=== PATIENT | female | born 1970 | race African-American/Black ===

== ENCOUNTER 2017-06-02 08:41 | Emergency (ER) | payer OTHER ==
[2017-06-02] MEDS ORDERED: HYDROCODONE/ACETAMINOPHEN 5-325 MG TABLET PO ONE (09:26)
--- NOTE | 2017-06-02 09:38 | RADIOLOGY REPORT (SQ) ---
EXAM DESCRIPTION: CT HEAD WITHOUT COMPLETED DATE/TIME: 06/02/2017 9:26 am REASON FOR STUDY: fall head neck pain COMPARISON: 08/06/2015. TECHNIQUE: Axial images acquired through the brain without intravenous contrast. Images reviewed wi th bone, brain and subdural windows. Images stored on PACS. All CT scanners at this facility use dose modulation, iterative reconstruction, and/or weight based d osing when appropriate to reduce radiation dose to as low as reasonably achievable (ALARA). [facility]: Dose Right [facility]: CareDose [facility]: Dose Right [facility]: Teradose 4D [facility]: [employer] RADIATION DOSE: CT Rad equipment meets quality standard of care and radiation dose reduction techniq ues were employed. CTDIvol: 64.6 mGy. DLP: 1163 mGy-cm. mGy. LIMITATIONS: None. FINDINGS: VENTRICLES: Normal size and contour. CEREBRUM: No masses. No hemorrhage. No midline shift. No evidence for acute infarction. Normal gra y/white matter differentiation. No areas of low density in the white matter. CEREBELLUM: No masses. No hemorrhage. No alteration of density. No evidence for acute infarction. EXTRAAXIAL SPACES: No fluid collections. No masses. ORBITS AND GLOBE: No intra- or extraconal masses. Normal contour of globe without masses. CALVARIUM: No fracture. PARANASAL SINUSES: Retention cyst floor of left maxillary sinus. . SOFT TISSUES: No mass or hematoma. OTHER: No other significant finding. IMPRESSION: NORMAL BRAIN CT WITHOUT CONTRAST. EVIDENCE OF ACUTE STROKE: NO. COMMENT: Quality ID # [id number]: Final reports with documentation of one or more dose reduction techniques (e.g., Automated exposure control, adjustment of the mA and/or kV according to patient size, use of iterative reconstruction technique) TECHNICAL DOCUMENTATION: JOB ID: [id number] 2010 [employer]- All Rights Reserved
--- NOTE | 2017-06-02 09:42 | RADIOLOGY REPORT (SQ) ---
EXAM DESCRIPTION: SHOULDER RIGHT 2 OR MORE VIEWS COMPLETED DATE/TIME: 06/02/2017 9:33 am REASON FOR STUDY: fall COMPARISON: None. NUMBER OF VIEWS: Three views. TECHNIQUE: Internal rotation, external rotation, and Y view images acquired of the right shoulder. LIMITATIONS: None. FINDINGS: MINERALIZATION: Normal. BONES: Impacted comminuted fracture proximal right humerus with avulsion of greater tuberosity. Prom inent osteophyte inferior acromion. JOINTS: No dislocation. VISUALIZED LUNGS AND RIBS: No pneumothorax. No rib fracture. SOFT TISSUES: No radiopaque foreign body. OTHER: No other significant finding. IMPRESSION: Impacted comminuted fracture proximal right humerus. TECHNICAL DOCUMENTATION: JOB ID: [id number] 2010 [employer]- All Rights Reserved
--- NOTE | 2017-06-02 09:45 | RADIOLOGY REPORT (SQ) ---
EXAM DESCRIPTION: CT CERVICAL SPINE WITHOUT COMPLETED DATE/TIME: 06/02/2017 9:26 am REASON FOR STUDY: fall head neck pain COMPARISON: 08/06/2015 TECHNIQUE: Axial images acquired through the cervical spine without intravenous contrast. Images re viewed with lung, soft tissue and bone windows. Reconstructed coronal and sagittal MPR images review ed. Images stored on PACS. All CT scanners at this facility use dose modulation, iterative reconstruction, and/or weight based d osing when appropriate to reduce radiation dose to as low as reasonably achievable (ALARA). [facility]: Dose Right [facility]: CareDose [facility]: Dose Right [facility]: Teradose 4D [facility]: [employer] RADIATION DOSE: CT Rad equipment meets quality standard of care and radiation dose reduction techniq ues were employed. CTDIvol: 15.8 mGy. DLP: 291 mGy-cm. mGy. LIMITATIONS: None. FINDINGS: ALIGNMENT: Anatomic. MINERALIZATION: Normal. VERTEBRAL BODIES: No fractures or dislocation. DISCS: Moderate disc space loss C4-5 and C5-6 with mild disc space loss at C3-4 and C6-7. Small to m oderate-sized osteophytes. Calcification of posterior longitudinal ligament. Spinal stenosis extend ing from the top of C4 through this C6-7 disc space, primarily mild with moderate narrowing at C4-5. Mild neural foraminal narrowing at C4-5, C5-6 and C6-7. FACETS, LATERAL MASSES, POSTERIOR ELEMENTS: No fractures. No dislocation. No acute findings. HARDWARE: None in the spine. VISUALIZED RIBS: No fractures. LUNG APICES AND SOFT TISSUES: No significant or acute findings. OTHER: No other significant finding. IMPRESSION: 1. No evidence of acute injury. 2. Degenerative disc disease and calcification of the posterior longitudinal ligament with associate d mild to moderate spinal stenosis and mild neural foraminal narrowing. TECHNICAL DOCUMENTATION: JOB ID: [id number] Quality ID # [id number]: Final reports with documentation of one or more dose reduction techniques (e.g., Au tomated exposure control, adjustment of the mA and/or kV according to patient size, use of iterative reconstruction technique) 2010 [employer]- All Rights Reserved
--- NOTE | 2017-06-02 10:29 | ER Document Report ---
ED General - General Chief Complaint: Fall Injury Stated Complaint: FALL ARM PAIN Time Seen by Provider: 06/02/17 09:05 Mode of Arrival: Ambulatory Information source: Patient Notes: 46 yr old female presents after a mechanical trip and fall striking her head and her right shoulder. Patient notes this occurred yesterday notes that she has had difficulty moving her right arm secondary to the pain in the shoulder. Patient denies any fevers or chills denies any neck pain admits to LOC TRAVEL OUTSIDE OF THE [place] IN LAST 30 DAYS: No - HPI Onset: Yesterday Onset/Duration: Sudden Quality of pain: Achy Severity: Mild Pain Level: 3 Associated symptoms: Body/muscle aches, Other Exacerbated by: Movement Relieved by: Denies Similar symptoms previously: No Recently seen / treated by doctor: No - Related Data Allergies/Adverse Reactions: Penicillins Allergy (Verified 10/21/13 16:45) YEAST INFECTION, HIVES Past Medical History - Social History Smoking Status: Never Smoker Cigarette use (# per day): No Chew tobacco use (# tins/day): No Smoking Education Provided: No Family History: Reviewed & Not Pertinent - Past Medical History Cardiac Medical History: Denies: Hx Heart Attack Pulmonary Medical History: Denies: Hx Asthma Neurological Medical History: Reports: Hx Migraine. Denies: Hx Cerebrovascular Accident, Hx Seizures GI Medical History: Denies: Hx Hepatitis, Hx Hiatal Hernia, Hx Ulcer Psychiatric Medical History: Reports: Hx Anxiety, Hx Depression Infectious Medical History: Denies: Hx Hepatitis Past Surgical History: Reports: Hx Gastric Bypass Surgery, Hx Hysterectomy. Denies: Hx Mastectomy, Hx Open Heart Surgery, Hx Pacemaker - Immunizations Immunizations up to date: No Hx Diphtheria, Pertussis, Tetanus Vaccination: Yes Review of Systems - Review of Systems Notes: REVIEW OF SYSTEMS: CONSTITUTIONAL : Denies fever, chills, or sweats. Denies recent illness. EENT: Denies eye, ear, throat, or mouth pain or symptoms. Denies nasal or sinus congestion or discharge. Denies throat, tongue, or mouth swelling or difficulty swallowing. CARDIOVASCULAR: Denies chest pain. Denies palpitations or racing or irregular heart beat. Denies ankle edema. RESPIRATORY: Denies cough, cold, or chest congestion. Denies shortness of breath, difficulty breathing, or wheezing. GASTROINTESTINAL: Denies abdominal pain or distention. Denies nausea, vomiting , or diarrhea. Denies blood in vomitus, stools, or per rectum. Denies black, tarry stools. Denies constipation. GENITOURINARY: Denies difficulty urinating, painful urination, burning, frequency, blood in urine, or discharge. FEMALE GENITOURINARY: Denies vaginal bleeding, heavy or abnormal periods, irregular periods. Denies vaginal discharge or odor. MUSCULOSKELETAL: Admits to shoulder pain SKIN: Denies rash, lesions or sores. HEMATOLOGIC : Denies easy bruising or bleeding. LYMPHATIC: Denies swollen, enlarged glands. NEUROLOGICAL: Denies confusion or altered mental status. Denies passing out or loss of consciousness. Denies dizziness or lightheadedness. Denies headache. Denies weakness or paralysis or loss of use of either side. Denies problems with gait or speech. Denies sensory loss, numbness, or tingling. Denies seizures. PSYCHIATRIC: Denies anxiety or stress. Denies depression, suicidal ideation, or homicidal ideation. ALL OTHER SYSTEMS REVIEWED AND NEGATIVE. PHYSICAL EXAMINATION: GENERAL: Well-appearing, well-nourished and in no acute distress. HEAD: Atraumatic, normocephalic. EYES: Pupils equal round extraocular movements intact, conjunctiva are normal. ENT: Nares patent NECK: Normal range of motion LUNGS: No respiratory distress Musculoskeletal: Patient holding arm across abdomen tender in right humeral head Full range of motion of digits no neuro deficits NEUROLOGICAL: Normal speech, normal gait. PSYCH: Normal mood, normal affect. SKIN: Warm, Dry, normal turgor, no rashes or lesions noted. Dictation was performed using [employer] voice recognition software Physical Exam - Vital signs Vitals: Temp Pulse Resp BP Pulse Ox 97.5 F 73 16 133/88 H 100 06/02/17 08:57 06/02/17 08:57 06/02/17 08:57 06/02/17 08:57 06/02/17 08:57 Course - Re-evaluation Re-evalutation: 06/02/17 13:14 X-rays consistent with a humeral fracture, patient is placed in a sling will be given orthopedic follow-up as well pain control. CT head and neck were negative patient looks well otherwise. Injury occurred one day prior and patient has no deficits otherwise After performing a Medical Screening Examination, I estimate there is LOW risk for INTRACRANIAL HEMORRHAGE, UNSTABLE SPINE FRACTURE, CENTRAL CORD SYNDROME, CAUDA EQUINA, THORACIC AORTIC DISSECTION, PNEUMOTHORAX, PERFORATED BOWEL, RUPTURED ABDOMINAL AORTIC ANEURYSM, ACUTE TENDON RUPTURE, COMPARTMENT SYNDROME, or OPEN FRACTURE, thus I consider the discharge disposition reasonable. Also, there is no evidence or peritonitis, sepsis, or toxicity. I have reevaluated this patient multiple times and no significant life threatening changes are noted. The patient and I have discussed the diagnosis and risks, and we agree with discharging home to follow-up with their primary doctor with the understanding that symptoms and presentations can change. We also discussed returning to the Emergency Department immediately if new or worsening symptoms occur. We have discussed the symptoms which are most concerning (e.g., bloody stool, fever, changing or worsening pain, vomiting) that necessitate immediate return. - Vital Signs Vital signs: Temp Pulse Resp BP Pulse Ox 98.8 F 73 18 147/97 H 97 06/02/17 10:51 06/02/17 10:51 06/02/17 10:51 06/02/17 10:51 06/02/17 10:51 - Diagnostic Test Radiology reviewed: Image reviewed, Reports reviewed - humeral fracture report given to the patient Procedures - Immobilization Right Shoulder Time completed: 11:00 Pre-Proc Neuro Vasc Exam: Normal Immobilizer type: Sling Performed by: PCT Post-Proc Neuro Vasc Exam: Normal Alignment checked and good: Yes Discharge - Discharge Clinical Impression: Fall Qualifiers: Encounter type: initial encounter Qualified Code(s): W19.XXXA - Unspecified fall, initial encounter Humeral fracture Qualifiers: Encounter type: initial encounter Humerus Location: surgical neck Fracture type : closed Fracture morphology: unspecified fracture morphology Fracture alignment : displaced Laterality: right Qualified Code(s): S42.211A - Unspecified displaced fracture of surgical neck of right humerus, initial encounter for closed fracture Condition: Stable Disposition: HOME, SELF-CARE Instructions: Fracture Proximal Humerus Additional Instructions: You have a broken bone in your right arm. Please follow up with ortho for further care Prescriptions: Hydrocodone/Acetaminophen [[place] 5-325 mg Tablet] 1 tab PO Q6 #20 tablet Referrals: NIKIA CARLTON MD [ACTIVE STAFF] - Follow up in 3-5 days
[2017-06-02 10:52] VITALS: BP 147/97
== END 2017-06-02 11:00 | disposition home or self-care (01) ==
LOC: ER 08:41
DX: S42.211A Unspecified displaced fracture of surgical neck of right humerus, initial encounter for closed fracture (principal); R51 Headache; W01.0XXA Fall on same level from slipping, tripping and stumbling without subsequent striking against object, initial encounter; Z88.0 Allergy status to penicillin; Z90.710 Acquired absence of both cervix and uterus; Z98.84 Bariatric surgery status
CPT/HCPCS: 70450; 72125; 99284

== ENCOUNTER 2018-01-24 13:26 | Emergency (ER) | payer OTHER ==
[2018-01-24 14:00] LABS: ABSOLUTE EOSINOPHILS # (AUTO) 0.1 10^3/uL (0.0-0.6); ABSOLUTE LYMPHOCYTES (AUTO) 2.3 10^3/uL (0.5-4.7); ABSOLUTE MONOCYTES (AUTO) 0.7 10^3/uL (0.1-1.4); ABSOLUTE NEUT (AUTO) 1.6 10^3/uL (1.7-8.2); BASOPHILS % (AUTO) 0.4 % (0-2); EOSINOPHILS % (AUTO) 2.2 % (0-6); HEMATOCRIT 37.1 % (36.0-47.0); HEMOGLOBIN 12.6 g/dL (12.0-15.5); LYMPHOCYTES % (AUTO) 48.5 % (13-45); MEAN CORPUSCULAR HEMOGLOBIN 32.6 pg (27.0-33.4); MEAN CORPUSCULAR HGB CONC 33.9 g/dL (32.0-36.0); MEAN CORPUSCULAR VOLUME 96 fl (80-97); MONOCYTES % (AUTO) 14.4 % (3-13); PLATELET COUNT 224 10^3/uL (150-450); RED BLOOD COUNT 3.86 10^6/uL (3.72-5.28); RED CELL DISTRIBUTION WIDTH 13.6 % (11.5-14.0); SEGMENTED NEUTROPHILS % (AUTO) 34.5 % (42-78); TOTAL CELLS COUNTED % (AUTO) 100 %; WHITE BLOOD COUNT 4.8 10^3/uL (4.0-10.5)
[2018-01-24] MEDS ORDERED: DEXTROSE 5%-LACTATED RINGERS 1,000 ML IV ONE (14:09)
--- NOTE | 2018-01-24 14:14 | ER Document Report ---
ED General - General Mode of Arrival: Ambulatory Information source: Patient TRAVEL OUTSIDE OF THE [place] IN LAST 30 DAYS: No <SULAIMAN ALLEN - Last Filed: 01/24/18 15:41> <JOSE MIGUEL HUNTER - Last Filed: 01/24/18 17:28> - General Chief Complaint: Syncope Stated Complaint: SYNCOPE Time Seen by Provider: 01/24/18 13:55 Notes: Patient is a 47 year old female with migraines, anxiety, depression presents to the emergency department due to a syncopal episode. Patient states she was sitting in her car eating lunch when she began to feel very hot and light headed. She states she told a bystander she felt like she was going to "pass out " and then remembers being told by bystander she had a syncopal event. Patient states when she woke up she felt like she had to have a bowel movement and she walked to the bathroom and proceeded to have diarrhea described as "basically water". She states she then laid on the floor due to feeling light headed and the floor feeling cool. According to EMS patient had a blood pressure of 67/46 and they proceeded to give 0.5 L of fluids. Of significance, patient was admitted to the hospital in July 2015 for low hemoglobin and diagnosed with Iron and B12 deficiency secondary to malabsorption caused by her gastric bypass. (SULAIMAN ALLEN) - Related Data Allergies/Adverse Reactions: Penicillins Allergy (Verified 10/21/13 16:45) YEAST INFECTION, HIVES Past Medical History - General Information source: Patient - Social History Smoking Status: Current Every Day Smoker Family History: Reviewed & Not Pertinent - Past Medical History Cardiac Medical History: Neurological Medical History: Reports: Hx Migraine Psychiatric Medical History: Reports: Hx Anxiety, Hx Depression Past Surgical History: Reports: Hx Gastric Bypass Surgery, Hx Hysterectomy - Immunizations Immunizations up to date: No Hx Diphtheria, Pertussis, Tetanus Vaccination: Yes <SULAIMAN ALLEN - Last Filed: 01/24/18 15:41> Review of Systems - Review of Systems Constitutional: No symptoms reported EENT: No symptoms reported Cardiovascular: See HPI, Syncope, Lightheaded Respiratory: No symptoms reported Gastrointestinal: See HPI, Diarrhea Genitourinary: No symptoms reported Female Genitourinary: No symptoms reported Musculoskeletal: No symptoms reported Skin: No symptoms reported Hematologic/Lymphatic: No symptoms reported Neurological/Psychological: No symptoms reported -: Yes All other systems reviewed and negative <SULAIMAN ALLEN - Last Filed: 01/24/18 15:41> Physical Exam <SULAIMAN ALLEN - Last Filed: 01/24/18 15:41> <JOSE MIGUEL HUNTER - Last Filed: 01/24/18 17:28> - Vital signs Vitals: Temp Resp Pulse Ox 97.5 F 15 100 01/24/18 13:36 01/24/18 13:36 01/24/18 13:36 - Notes Notes: GENERAL: Alert, interacts well. No acute distress. HEAD: Normocephalic, atraumatic. EYES: Pupils equal, round, and reactive to light. Extraocular movements intact. ENT: Oral mucosa moist, tongue midline. NECK: In c-collar, states her neck feels better when c-collar is off. Full range of motion. Supple. Trachea midline. Posterior cervical muscles tender to palpation, nontender over the spinous processes. LUNGS: Clear to auscultation bilaterally, no wheezes, rales, or rhonchi. No respiratory distress. HEART: Regular rate and rhythm. No murmurs, gallops, or rubs. ABDOMEN: Soft, non-tender. Non-distended. Bowel sounds present in all 4 quadrants. EXTREMITIES: Moves all 4 extremities spontaneously. No edema, radial and dorsalis pedis pulses 2/4 bilaterally. No cyanosis. NEUROLOGICAL: Alert and oriented x3. Normal speech. PSYCH: Normal affect, normal mood. SKIN: Warm, dry, normal turgor. No rashes or lesions noted. (SULAIMAN ALLEN) Course - Laboratory Result Diagrams: 01/24/18 13:40 01/24/18 13:40 <SULAIMAN ALLEN - Last Filed: 01/24/18 15:41> - Laboratory Result Diagrams: 01/24/18 13:40 01/24/18 13:40 <JOSE MIGUEL HUNTER - Last Filed: 01/24/18 17:28> - Re-evaluation Re-evalutation: 01/24/18 16:02 Patient states that she has noticed that her urine seems to be "strong" last few days. The UA that was collected despite trying to do a clean catch had 14 epithelial cells. I told the patient we would do a catheterized urine to be certain about whether or not there is an infection. 01/24/18 17:25 Patient's blood pressure has been stable for quite some time. She keeps bending her arm making it difficult for the IV fluid to run in. The catheterized urine does not show signs of infection. She is comfortable going home and drinking plenty of fluids and taking Imodium AD if she has more diarrhea. (JOSE MIGUEL HUNTER) - Vital Signs Vital signs: Temp Pulse Resp BP Pulse Ox 97.5 F 12 124/77 100 01/24/18 13:36 01/24/18 14:33 01/24/18 14:33 01/24/18 14:33 - Laboratory Laboratory results interpreted by me: 01/24/18 01/24/18 01/24/18 13:40 13:40 15:00 Seg Neutrophils % 34.5 L Lymphocytes % 48.5 H Monocytes % 14.4 H Absolute Neutrophils 1.6 L Potassium 3.5 L Chloride 109 H Anion Gap 2 L BUN 6 L Calcium 8.0 L AST 38 H Albumin 3.4 L Urine Blood SMALL H Urine Urobilinogen 2.0 H 01/24/18 16:21 Seg Neutrophils % Lymphocytes % Monocytes % Absolute Neutrophils Potassium Chloride Anion Gap BUN Calcium AST Albumin Urine Blood MODERATE H Urine Urobilinogen 2.0 H Discharge <SULAIMAN ALLEN - Last Filed: 01/24/18 15:41> <JOSE MIGUEL HUNTER - Last Filed: 01/24/18 17:28> - Discharge Clinical Impression: Near syncope Hypotension Qualifiers: Hypotension type: unspecified hypotension type Qualified Code(s): I95.9 - Hypotension, unspecified Diarrhea Qualifiers: Diarrhea type: unspecified type Qualified Code(s): R19.7 - Diarrhea, unspecified Condition: Stable Disposition: HOME, SELF-CARE Additional Instructions: Syncopal Episode Syncope (fainting or near-fainting) can occur from many different health problems. Or it can be a simple fainting spell requiring no treatment. It is safe for you to go home, but further evaluation will likely be necessary. Your work-up may include tests for internal bleeding, heart disease, medication problems, or near-strokes. Tests are not always required, however, depending on the nature of your problem. The warning signs of an impending faint include: dizziness, lightheadedness , nausea, hot flashes, tingling, and weakness. If this happens, lay down and put your feet up, then wait until all of these symptoms have passed before standing up again. If these episodes become recurrent, or if you develop chest pain, heart palpitations, mental confusion, blurred vision, or headache, then you should call the physician, or go to the emergency room. Your near fainting episode was probably due to your blood pressure going so low. This could be partly due to the large volume diarrhea you had, and for the discomfort and feeling a need to go to the bathroom causing her blood pressure to drop. I suspect your symptoms very well may be due to a viral gastroenteritis type problem. Drink plenty of fluids today and rest. Take Imodium AD for diarrhea if you continue having the diarrhea. Follow-up with your doctor tomorrow if not feeling back to normal. RETURN TO THE EMERGENCY ROOM IF ANY NEW OR WORSENING SYMPTOMS. Leviibe Attestation: 01/24/18 17:26 I personally performed the services described in the documentation, reviewed and edited the documentation which was dictated to the scribe in my presence, and it accurately records my words and actions. (JOSE MIGUEL HUNTER) Scribe Documentation - Scribe Written by Brittany:: Brittany Clarke, 01/24/2018 14:28 acting as scribe for :: Joann <SULAIMAN ALLEN - Last Filed: 01/24/18 15:41>
[2018-01-24 14:17] LABS: ALANINE AMINOTRANSFERASE 32 U/L (9-52); ALBUMIN 3.4 g/dL (3.5-5.0); ALKALINE PHOSPHATASE 45 U/L (38-126); ASPARTATE AMINO TRANSFERASE 38 U/L (14-36); BILIRUBIN,DIRECT 0.3 mg/dL (0.0-0.4); BILIRUBIN,TOTAL 0.3 mg/dL (0.2-1.3); BLOOD UREA NITROGEN 6 mg/dL (7-20); CHLORIDE 109 mmol/L (98-107); CREATINE KINASE 92 U/L (30-135); GLUCOSE 80 mg/dL (75-110); POTASSIUM 3.5 mmol/L (3.6-5.0); TOTAL PROTEIN 6.5 g/dL (6.3-8.2)
[2018-01-24 14:23] LABS: CARBON DIOXIDE 29 mmol/L (22-30); SODIUM 139.7 mmol/L (137-145)
[2018-01-24 14:24] LABS: ANION GAP 2 (5-19); CREATINE KINASE MB 0.81 ng/mL (<4.55); TROPONIN I < 0.012 ng/mL
[2018-01-24 15:22] LABS: APPEARANCE,URINE SLIGHTLY-CLOUDY; BILIRUBIN,URINE NEGATIVE (NEGATIVE); COLOR,URINE YELLOW; GLUCOSE, URINE NEGATIVE (NEGATIVE); KETONES,URINE NEGATIVE (NEGATIVE); LEUKOCYTE ESTERASE,URINE NEGATIVE (NEGATIVE); NITRITE,URINE NEGATIVE (NEGATIVE); PROTEIN,URINE NEGATIVE (NEGATIVE); URINE SPECIFIC GRAVITY 1.018
[2018-01-24 17:07] LABS: APPEARANCE,URINE CLEAR; BILIRUBIN,URINE NEGATIVE (NEGATIVE); COLOR,URINE YELLOW; GLUCOSE, URINE NEGATIVE (NEGATIVE); KETONES,URINE NEGATIVE (NEGATIVE); LEUKOCYTE ESTERASE,URINE NEGATIVE (NEGATIVE); NITRITE,URINE NEGATIVE (NEGATIVE); PROTEIN,URINE NEGATIVE (NEGATIVE); URINE SPECIFIC GRAVITY 1.013
[2018-01-24 17:35] VITALS: BP 128/79
--- NOTE | 2018-01-24 19:36 | EKG REPORT ---
SEVERITY:- NORMAL ECG - SINUS RHYTHM : Confirmed by: Yessica Paredes MD 24-Jan-2018 19:35:11
== END 2018-01-24 17:41 | disposition home or self-care (01) ==
LOC: ER 13:26
DX: R55 Syncope and collapse (principal); I95.9 Hypotension, unspecified; R19.7 Diarrhea, unspecified; F41.9 Anxiety disorder, unspecified; F17.200 Nicotine dependence, unspecified, uncomplicated; Z88.0 Allergy status to penicillin; Z98.84 Bariatric surgery status; Z90.710 Acquired absence of both cervix and uterus
CPT/HCPCS: 36415; 51701; 80053; 81001; 82550; 82553; 84484; 85025; 93005; 93010; 96360; 99284

== ENCOUNTER 2018-09-01 21:57 | Emergency (ER) | payer OTHER ==
[2018-09-01] MEDS ORDERED: NORMAL SALINE 500 ML IV ONE (22:42)
--- NOTE | 2018-09-01 22:47 | ER Document Report ---
ED General - General Chief Complaint: Dizziness Stated Complaint: DIZZINESS Time Seen by Provider: 09/01/18 22:33 Notes: Patient is a 47-year-old female presents with complaints of near syncopal episode. She says that this happened many times in the past. She says [facility] says it has to do with her blood sugar and blood pressure suddenly dropping at times. Patient said usually her symptoms go away but this times the linger longer. She says she will get diaphoretic and lightheaded and dizzy. Tonight she almost passed out but did not fully pass out. She admits that she has been doing a lot of work today including cleaning out the [employer] and being very busy today. She admits she does not drink a lot of water and drinks like caffeinated beverages. She is on a medicines for diabetes. She denies headache. She denies any chest pain or shortness of breath. She denies feeling as if her heart was beating abnormally. She denies any focal weakness or numbness. No headache. No other complaints at this time. She does have history of gastric bypass 10 years ago. Patient says her episodes of dizziness always occur when she is standing. TRAVEL OUTSIDE OF THE [place] IN LAST 30 DAYS: No - Related Data Allergies/Adverse Reactions: Penicillins Allergy (Verified 10/21/13 16:45) YEAST INFECTION, HIVES Past Medical History - Social History Smoking Status: Current Every Day Smoker Frequency of alcohol use: None Drug Abuse: None Family History: Reviewed & Not Pertinent Patient has suicidal ideation: No Patient has homicidal ideation: No - Past Medical History Cardiac Medical History: Denies: Hx Heart Attack Pulmonary Medical History: Denies: Hx Asthma Neurological Medical History: Reports: Hx Migraine. Denies: Hx Cerebrovascular Accident, Hx Seizures Renal/ Medical History: Denies: Hx Peritoneal Dialysis GI Medical History: Denies: Hx Hepatitis, Hx Hiatal Hernia, Hx Ulcer Psychiatric Medical History: Reports: Hx Anxiety, Hx Depression Infectious Medical History: Denies: Hx Hepatitis Past Surgical History: Reports: Hx Abdominal Surgery - gastric bypass, Hx Gastric Bypass Surgery, Hx Hysterectomy. Denies: Hx Mastectomy, Hx Open Heart Surgery, Hx Pacemaker - Immunizations Immunizations up to date: No Hx Diphtheria, Pertussis, Tetanus Vaccination: Yes Review of Systems - Review of Systems Notes: My Normal Review Basic REVIEW OF SYSTEMS: CONSTITUTIONAL : Denies fever, chills, or sweats. Denies recent illness. EENT: Denies eye, ear, throat, or mouth pain or symptoms. Denies nasal or sinus congestion. CARDIOVASCULAR: Denies chest pain. RESPIRATORY: Denies cough, cold, or chest congestion. Denies shortness of breath, difficulty breathing, or wheezing. GASTROINTESTINAL: Denies abdominal pain. Denies nausea, vomiting, or diarrhea. Denies constipation. Last BM: GENITOURINARY: Denies difficulty urinating, painful urination, burning, frequency, or blood in urine. MUSCULOSKELETAL: Denies neck or back pain or joint pain or swelling. SKIN: Denies rash or skin lesions. NEUROLOGICAL: Near syncopal episode. Denies headache. Denies weakness or paralysis or loss of use of either side. Denies problems with gait or speech. Denies sensory or motor loss. ALL OTHER SYSTEMS REVIEWED AND NEGATIVE. Physical Exam - Vital signs Vitals: Temp Pulse Resp BP Pulse Ox 97.9 F 70 18 172/88 H 97 09/01/18 22:02 09/01/18 22:02 09/01/18 22:02 09/01/18 22:02 09/01/18 22:02 - Notes Notes: General Appearance: Well nourished, alert, cooperative, no acute distress, no obvious discomfort. Patient apparently was sleepy in triage. Currently she is wide awake and well-appearing. She says she is feeling improved. Vitals: reviewed, See vital signs table. Head: no swelling or tenderness to the head Eyes: PERRL, EOMI, Conjuctiva clear Mouth: No decreasd moisture Throat: No tonsillar inflammation, No airway obstruction, No lymphadenopathy Neck: Supple, no neck tenderness, scar and rest of neck from previous PICC line placement. Lungs: No wheezing, No rales, No rhonci, No accessory muscle use, good air exchange bilaterally. Heart: Normal rate, Regular rythm, No murmur, no rub Abdomen: Normal BS, soft, No rigidity, No abdominal tenderness, No guarding, no rebound, no abdominal masses, no organomegaly. Scar in abdomen. Extremities: strength 5/5 in all extremities, good pulses in all extremities, no swelling or tenderness in the extremities, no edema. Skin: warm, dry, appropriate color, no rash Neuro: speech clear, oriented x 3, normal affect, responds appropriately to questions. Cranial nerves II through XII are intact. Distal sensation intact. Patient moves all extremities without difficulty. No focal neurologic deficits on exam. Course - Re-evaluation Re-evalutation: 09/02/18 00:09 Patient is feeling improved. She says she feels much better after receiving IV fluids. The exact cause of her recurrent episodes of dizziness and passing out or not clear. Tonight she did not fully pass out however she continued feel dizzy for a little while and therefore came to the ER. Neurologically she is fully intact. She has no neurologic deficits on exam. She did not have any chest pain shortness of breath or palpitations before or after passing out. She says these episodes only occur when she is standing. She does mention that she drinks lots of caffeine and not much water. She also mentions that today she was very busy and did not eat much throughout the day. I encouraged her to make sure that she continues to eat only small portions of food throughout the day so that her blood sugar does not decrease. I encouraged her drink lots of water to try to avoid caffeinated beverages. I encouraged her to follow-up with her doctor next couple days and to return to ER immediately if she has recurrent episodes of dizziness or passing out, fevers, chest pain, or she feels unwell. Patient agrees with plan and will be discharged home. Dictation of this chart was performed using voice recognition software; therefore, there may be some unintended grammatical errors. - Vital Signs Vital signs: Temp Pulse Resp BP Pulse Ox 97.9 F 70 18 172/88 H 97 09/01/18 22:02 09/01/18 22:02 09/01/18 22:02 09/01/18 22:02 09/01/18 22:02 - Laboratory Result Diagrams: 09/01/18 22:57 09/01/18 22:57 Laboratory results interpreted by me: 09/01/18 09/01/18 22:57 22:57 RDW 14.3 H Seg Neutrophils % 32.7 L Lymphocytes % 50.2 H Monocytes % 15.5 H Urine Blood SMALL H Discharge - Discharge Clinical Impression: Near syncope Condition: Good Disposition: HOME, SELF-CARE Additional Instructions: Please try to avoid caffeinated beverages. Please drink more water and non- caffeinated beverages. Please make sure you eat multiple small portions of food throughout the day especially when you are busy. Please return to the ER immediately if you have fevers, chest pain, difficulty breathing, recurrent passing out episode, or if you feel unwell in any way. These rest over the next 24 hours. Referrals: [facility] - Follow up in 3-5 days
[2018-09-01 23:11] LABS: ABSOLUTE EOSINOPHILS # (AUTO) 0.1 10^3/uL (0.0-0.6); ABSOLUTE LYMPHOCYTES (AUTO) 2.8 10^3/uL (0.5-4.7); ABSOLUTE MONOCYTES (AUTO) 0.9 10^3/uL (0.1-1.4); ABSOLUTE NEUT (AUTO) 1.8 10^3/uL (1.7-8.2); BASOPHILS % (AUTO) 0.4 % (0-2); EOSINOPHILS % (AUTO) 1.2 % (0-6); HEMATOCRIT 37.5 % (36.0-47.0); HEMOGLOBIN 12.6 g/dL (12.0-15.5); LYMPHOCYTES % (AUTO) 50.2 % (13-45); MEAN CORPUSCULAR HEMOGLOBIN 31.4 pg (27.0-33.4); MEAN CORPUSCULAR HGB CONC 33.5 g/dL (32.0-36.0); MEAN CORPUSCULAR VOLUME 94 fl (80-97); MONOCYTES % (AUTO) 15.5 % (3-13); PLATELET COUNT 276 10^3/uL (150-450); RED CELL DISTRIBUTION WIDTH 14.3 % (11.5-14.0); SEGMENTED NEUTROPHILS % (AUTO) 32.7 % (42-78); TOTAL CELLS COUNTED % (AUTO) 100 %; WHITE BLOOD COUNT 5.5 10^3/uL (4.0-10.5)
[2018-09-01 23:14] LABS: APPEARANCE,URINE SLIGHTLY-CLOUDY; BILIRUBIN,URINE NEGATIVE (NEGATIVE); COLOR,URINE YELLOW; GLUCOSE, URINE NEGATIVE (NEGATIVE); KETONES,URINE NEGATIVE (NEGATIVE); LEUKOCYTE ESTERASE,URINE NEGATIVE (NEGATIVE); NITRITE,URINE NEGATIVE (NEGATIVE); PROTEIN,URINE NEGATIVE (NEGATIVE); URINE SPECIFIC GRAVITY 1.009; UROBILINOGEN,URINE NEGATIVE mg/dL (<2.0)
[2018-09-01 23:25] LABS: ANION GAP 7 (5-19); BLOOD UREA NITROGEN 10 mg/dL (7-20); CALCIUM 8.8 mg/dL (8.4-10.2); CARBON DIOXIDE 25 mmol/L (22-30); CHLORIDE 106 mmol/L (98-107); GLUCOSE 97 mg/dL (75-110); POTASSIUM 3.8 mmol/L (3.6-5.0); SODIUM 138.3 mmol/L (137-145)
[2018-09-02 00:33] VITALS: BP 100/88
== END 2018-09-02 00:36 | disposition home or self-care (01) ==
LOC: ER 21:57
DX: R55 Syncope and collapse (principal); E11.9 Type 2 diabetes mellitus without complications; Z79.899 Other long term (current) drug therapy; F17.200 Nicotine dependence, unspecified, uncomplicated; Z98.84 Bariatric surgery status; Z88.0 Allergy status to penicillin
CPT/HCPCS: 99284; 36415; 82962; 84703; 85025; 80048; 81001; J7040